=== PATIENT | male | born 1960 | race American Indian/Alaskan Native ===

== ENCOUNTER 2017-02-12 14:27 | Outpatient (CLI) | payer BC ==
--- NOTE | 2017-02-12 15:29 | XRay Report ---
RIGHT SHOULDER: History: Pain. Mild osteoarthritic changes are identified at the acromioclavicular joint. There is no evidence for fracture, dislocation or ligamentous injury. No bone lesion. The soft tissues are unremarkable. IMPRESSION: Mild degenerative changes.
--- NOTE | 2017-02-12 15:30 | XRay Report ---
BILATERAL KNEES, 3 VIEWS History: Bilateral knee pain. Findings: Bone mineralization is within normal limits. No acute osseous findings or joint pathology is identified. The soft tissues are unremarkable. Impression: Unremarkable bilateral knees.
--- NOTE | 2017-02-12 15:57 | XRay Report ---
Lumbar spine series: Traction spurs are noted from the inferior margin of the L2-S1. There is moderate narrowing of the L4-5 interspace. There is gross narrowing at L5-S1 with a grade 2 anterior L5 subluxation. There appears to be a bilateral spondylolyses. The alignment is otherwise normal and there is relatively good preservation of the vertebral height and apophyseal joints. The bones are relatively well-mineralized. Impressions: 1. Grade 2 L5-S1 spondylolisthesis and spondylolysis. 2. Multilevel degenerative bone and disc changes. Cervical spine: AP and lateral views demonstrates anterior and posterior traction spurs extending from the inferior margin of C4-C6. There is retrolisthesis of C4 on C5 and also of C5 on C6. The interspaces at both levels are narrowed as well as the interspace at C6-7. There is mild generalized compression of the C4 and C5 vertebral bodies. Significant degenerative apophyseal joint changes are noted from C4-C7. There is no prevertebral swelling. The bones are moderately well-mineralized. Impressions: 1. Multilevel degenerative bone and disc disease. 2. Retrolisthesis of C4 and C5 as detailed above.
== END 2017-02-12 14:28 | disposition home or self-care (01) ==
LOC: XRAY 14:27
PROVIDERS: ATTEND Physical Medicine & Rehabilitation
DX: M47.897 Other spondylosis, lumbosacral region (principal); M51.37 Other intervertebral disc degeneration, lumbosacral region; M43.17 Spondylolisthesis, lumbosacral region; M79.622 Pain in left upper arm
CPT/HCPCS: 72040; 72110

== ENCOUNTER 2017-05-01 13:25 | Outpatient (CLI) | payer BC ==
[2017-05-01 14:35] LABS: Blood Urea Nitrogen 14 mg/dL (9-20)
== END 2017-05-01 13:26 | disposition home or self-care (01) ==
LOC: MRI 13:25
PROVIDERS: ATTEND Physical Medicine & Rehabilitation
DX: M54.12 Radiculopathy, cervical region (principal)
CPT/HCPCS: 36415; 82565; 84520